=== PATIENT | male | born 1995 ===

== ENCOUNTER 2016-11-13 01:17 | Emergency (ER) | payer SELFPAY ==
[~2016-11-13] VITALS: Ht 175 cm; Wt 79.8 kg
[2016-11-13 01:20] VITALS: BP 136/73; TEMP 98.3
[2016-11-13 01:42] VITALS: PULSE 60
== END 2016-11-13 01:43 | disposition home or self-care (01) ==
LOC: COL.ER 01:17
DX: R11.10 Vomiting, unspecified (principal); R19.7 Diarrhea, unspecified